=== PATIENT | female | born 1995 | race Caucasian/White ===

== ENCOUNTER 2019-11-19 14:18 | Emergency (ER) | payer SELFPAY ==
[2019-11-19 14:55] VITALS: BP 122/79; PULSE 101; RESP 16; TEMP 37; O2SAT 100
--- NOTE | 2019-11-19 15:03 | ED.SKABFB ---
HPI - Skin/Abscess/Foreign Bdy General Chief complaint: Skin/Abscess/Foreign Body Stated complaint: Bite Time Seen by Provider: 11/19/19 15:03 Source: patient and RN notes reviewed History of Present Illness HPI narrative: Patient is a 24-year-old female who presents the urgent care with complaints of a bite on the left thigh. Patient states that she noticed it approximately 2 weeks ago. Patient states approximately 3 days ago it started to get painful with redness and swelling. Patient states last night she felt chills and nauseated but denies any known fever. Patient also reports that she believes she has chlamydia and gonorrhea due to known contact with a recent sexual partner. Patient denies of any patient to follow-up in 2-3 days with primary care provider. Or painful intercourse. No other acute complaints. No acute distress noted. Patient read the plan of care. Related Data Allergies Allergy/AdvReac Type Severity Reaction Status Date / Time No Known Allergies Allergy Verified 11/19/19 15:14 Review of Systems Review of Systems: Narrative: CONSTITUTIONAL: Denies fever, chills, or sweats. EYES: Denies visual changes, redness, or discharge. ENT: Denies rhinorrhea, congestion, sore throat, or otalgia. CARDIOVASCULAR: Denies chest pain, palpitations, or edema. RESPIRATORY: Denies cough or dyspnea. GASTROINTESTINAL: Denies abdominal pain, nausea, vomiting, or diarrhea. GENITOURINARY: Denies dysuria or hematuria. SKIN: Reports of red swollen painful bug bite to the left thigh MUSCULOSKELETAL: Denies back pain, joint pain, or myalgia. NEUROLOGIC: Denies headache, numbness, or weakness. All other systems reviewed are negative, except as documented in HPI. PMFSH Comments At the time of my signature, I reviewed and agree with the nursing past medical, surgical, social, and family history. There is no relevant family history pertinent to the patient complaint. Exam Narrative: Exam Narrative: GENERAL: This is a well-nourished, well-developed patient, in no apparent distress. HEAD: normocephalic, atraumatic. EYES: PERRL. Sclera clear/white. Vision is grossly intact. EARS: External ears normal NOSE: External nose normal with no obvious nasal discharge, nares without redness, no rhinorrhea. THROAT: Mucous membranes moist NECK: Neck supple SKIN: 9 x 10 cm erythemic abscess noted to the left posterior lateral thigh with tenderness, no drainage : Deferred exam NEURO: awake, alert, and oriented to person, place and time. There were no obvious focal neurologic abnormalities. EXTREMITIES: No clubbing, cyanosis, or edema. Course Vital Signs Vital signs: Vital Signs Temperature 98.6 F 11/19/19 14:55 Pulse Rate 101 H 11/19/19 14:55 Respiratory Rate 16 11/19/19 14:55 Blood Pressure 122/79 11/19/19 14:55 Pulse Oximetry 100 11/19/19 14:55 Temperature 98.6 F 11/19/19 14:55 Pulse Rate 101 H 11/19/19 14:55 Respiratory Rate 16 11/19/19 14:55 Blood Pressure 122/79 11/19/19 14:55 Pulse Oximetry 100 11/19/19 14:55 Reviewed MDM - Skin/Abscess/Foreign Bdy MDM Narrative Medical decision making narrative: Due to known exposure to chlamydia and gonorrhea?you were treated in the clinic appropriately. Finish Flagyl prescription as directed. Abstain from sexual intercourse for the next 14 days. Use of a condom is still considered on safe sex if you are positive for an STD. Therefore until results have confirmed you are not back negative?abstain from any sexual intercourse. If you are positive, you will need to let your partners know and they will also need to abstain from sex for 14 days after treatment. We will call within 72 hours to 1 week to let you know of results. Make sure to eat and drink with the oral antibiotic regimen. Also complete doxycycline as prescribed for abscess of the leg. Use prescription cream to the area as directed. Start medication this evening. Make sure to eat and drink with th
[2019-11-19] MEDS: AZITHROMYCIN 250 MG TABLET 1000 MG PO (15:22)
[2019-11-19] MEDS: cefTRIAXone 250 MG VIAL IM (15:22)
== END 2019-11-19 15:40 | disposition home or self-care (01) ==
PROVIDERS: Emergency Provider Nurse Practitioner Family
DX: L02.416 Cutaneous abscess of left lower limb (principal); Z20.2 Contact with and (suspected) exposure to infections with a predominantly sexual mode of transmission
CPT/HCPCS: 87491; 87591; 87661; 96372; 99214; A9270; G0463; J0696